=== PATIENT | male | born 1985 | race Caucasian/White ===

== ENCOUNTER 2016-10-16 21:33 | Emergency (ER) | payer OTHER | END 2016-10-16 22:40 | disposition home or self-care (01) | LOC: ER 21:33 | DX: R07.9 Chest pain, unspecified (principal); M79.602 Pain in left arm; R06.00 Dyspnea, unspecified; R03.0 Elevated blood-pressure reading, without diagnosis of hypertension; F41.9 Anxiety disorder, unspecified; F17.210 Nicotine dependence, cigarettes, uncomplicated; Z79.899 Other long term (current) drug therapy | CPT/HCPCS: 36415 ==